=== PATIENT | male | born 1985 | race Caucasian/White ===

== ENCOUNTER 2021-12-20 14:18 | Emergency (ER) | payer OTHER ==
[~2021-12-20] VITALS: Ht 182.9 cm; Wt 121.0 kg
[2021-12-20] MEDS: IPRATRPIUM/ALBUTEROL 0.5/2.5MG 3 ML NEBU. NEB ONE (16:03)
--- NOTE | 2021-12-20 16:03 | RAD ---
XR CHEST 1V History: Reason: SOA / Spl. Instructions: / History: Comparison: None. Findings: No consolidation or pleural effusion. Normal heart size. No pneumothorax. Impression: 1. No acute cardiopulmonary process. Electronically signed by: Param Deng DO (12/20/2021 4:01 PM) [facility]
[2021-12-20 16:27] LABS: BASO # 0.1 x10^3/uL (0.0-0.2); BASO % 1 % (0-3); EOS # 0.2 x10^3/uL (0.0-0.7); EOS % 2 % (0-3); HEMOGLOBIN 17.9 g/dL (13.0-17.5); LYMPH # 3.2 x10^3/uL (1.0-4.8); LYMPH % 34 % (24-48); MEAN CORPUSCULAR HEMOGLOBIN 32 pg (25-35); MEAN CORPUSCULAR HGB CONC 35 g/dL (31-37); MEAN CORPUSCULAR VOLUME 90 fL (79-100); MONO # 0.8 x10^3/uL (0.0-1.1); MONO % 9 % (0-9); NEUT # 5.2 x10^3uL (1.8-7.7); NEUT % 55 % (31-73); PLATELET COUNT 290 x10^3/uL (140-400); RED BLOOD COUNT 5.64 x10^6/uL (4.30-5.70); RED CELL DISTRIBUTION WIDTH 12.8 % (11.5-14.5); WHITE BLOOD COUNT 9.6 x10^3/uL (4.0-11.0)
[2021-12-20 16:38] LABS: CALCIUM 9.1 mg/dL (8.5-10.1); CREATININE 1.1 mg/dL (0.7-1.3); GFR 75.3; POTASSIUM 3.5 mmol/L (3.5-5.1)
[2021-12-20 16:50] LABS: ALBUMIN 4.3 g/dL (3.4-5.0); ALBUMIN/GLOBULIN RATIO 1.3 (1.0-1.7); TOTAL BILIRUBIN 0.8 mg/dL (0.2-1.0); TOTAL PROTEIN 7.5 g/dL (6.4-8.2)
[2021-12-20 16:51] LABS: INFLUENZA A PATIENT NEGATIVE (NEGATIVE); INFLUENZA B PATIENT NEGATIVE (NEGATIVE)
[2021-12-20] MEDS: ASPIRIN CHEWABLE 81 MG TABLET. PO ONE (16:56)
[2021-12-20] MEDS: methylPREDNISolone SOD SUCC PF 125 MG/2 ML VIAL. IV ONE (16:57)
--- NOTE | 2021-12-20 17:01 | EKG ---
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
[2021-12-20 17:20] VITALS: BP 144/96
[2021-12-20] MEDS ORDERED: AZIT250T6 PO (17:31)
[2021-12-20] MEDS ORDERED: ALBU2.5V8 IH (17:31)
[2021-12-20] MEDS ORDERED: PRED50TA PO (17:31)
--- NOTE | 2021-12-20 17:31 | PHYS DOC ---
Past History Additional Past Medical Histor: elevated liver enzymes Past Surgical History: Other Additional Past Surgical Histo: knee, jaw Adult General Chief Complaint Chief Complaint: SHORTNESS OF BREATH HPI HPI The patient is a 36-year-old male with a long tobacco use history (just quit a month or 2 ago). He also has a history of hypertension. He is otherwise healthy. He presents for evaluation of mild nasal congestion, dry cough and mild shortness of breath, all with onset last evening and worsening today. Today began having hacking coughing fits. States symptoms are almost identical to many prior episodes of "acute bronchitis" which he has had in the past. No fevers, vomiting, chest pain of any kind, abdominal pain, flank pain, back pain, dysuria, hematuria, polyuria or oliguria, changes in bowel habits, pain or swelling to arms or legs. Vital signs are appropriate here and the patient is in no acute distress. Review of Systems Review of Systems A 12 point review of systems was completed and was negative except where noted in HPI above. Current Medications Current Medications Current Medications Medications (Trade) Dose Ordered Sig/Stephanie Start Time Stop Time Status Last Admin Dose Admin Albuterol/ Ipratropium (Duoneb) 3 ml 1X ONCE 12/20/21 15:30 12/20/21 15:31 DC 12/20/21 16:03 3 ML Aspirin (Aspirin Chewable) 324 mg 1X ONCE 12/20/21 15:30 12/20/21 15:31 DC 12/20/21 16:56 324 MG Methylprednisolone Sodium Succinate (SOLU-Medrol 125MG VIAL) 125 mg 1X ONCE 12/20/21 15:30 12/20/21 15:31 DC 12/20/21 16:57 125 MG Allergies Allergies Allergies Coded Allergies Type Severity Reaction Last Updated Verified hydrocodone Allergy Unknown Nausea and Vomiting 12/20/21 Yes Physical Exam Physical Exam 36-year-old male appearing nontoxic and in no acute distress. Head is normoc ephalic and atraumatic. Neck is supple and nontender. Oropharynx is moist. Lungs are clear to auscultation at all stations. There is a normal S1 and S2 without rubs or gallops and capillary refill is appropriate, less than 2 seconds globally. Abdomen is soft, nontender and nondistended without pulsatile mass. Skin is warm and dry without cyanosis, clubbing or edema. Psychiatrically, the patient demonstrates appropriate mood and affect and is alert. Evaluation of the extremities reveals BUEs and BLEs neurovascularly intact distally with strength out of 5, sensation intact light touch in all nerve distributions, radial, DP and PT pulses 2+ and equal bilaterally, capillary refill less than 2 seconds, hands and feet warm and well-perfused. No dependent peripheral edema distally. No calf tenderness or swelling bilaterally. Homans test is negative bilaterally. Current Patient Data Vital Signs Vital Signs Date Time Temp Pulse Resp B/P (MAP) Pulse Ox O2 Delivery O2 Flow Rate FiO2 12/20/21 16:04 95 Room Air 12/20/21 14:51 98.2 98 30 133/81 (98) Lab Results Laboratory Tests Test 12/20/21 15:50 12/20/21 15:52 White Blood Count 9.6 x10^3/uL (4.0-11.0) Red Blood Count 5.64 x10^6/uL (4.30-5.70) Hemoglobin 17.9 g/dL (13.0-17.5) H Hematocrit 51.0 % (39.0-53.0) Mean Corpuscular Volume 90 fL (79-100) Mean Corpuscular Hemoglobin 32 pg (25-35) Mean Corpuscular Hemoglobin Concent 35 g/dL (31-37) Red Cell Distribution Width 12.8 % (11.5-14.5) Platelet Count 290 x10^3/uL (140-400) Neutrophils (%) (Auto) 55 % (31-73) Lymphocytes (%) (Auto) 34 % (24-48) Monocytes (%) (Auto) 9 % (0-9) Eosinophils (%) (Auto) 2 % (0-3) Basophils (%) (Auto) 1 % (0-3) Neutrophils # (Auto) 5.2 x10^3uL (1.8-7.7) Lymphocytes # (Auto) 3.2 x10^3/uL (1.0-4.8) Monocytes # (Auto) 0.8 x10^3/uL (0.0-1.1) Eosinophils # (Auto) 0.2 x10^3/uL (0.0-0.7) Basophils # (Auto) 0.1 x10^3/uL (0.0-0.2) Prothrombin Time 10.9 SEC (9.4-11.4) Prothrombin Time INR 1.1 (0.9-1.1) Activated Partial Thromboplast Time 25 SEC (23-33) D-Dimer (Sena) 0.32 mg/L (0.00-0.50) Sodium Level 140 mmol/L (136-145) Potassium Level 3.5 mmol/L (3.5-5.1) Chloride Level 103 mmol/L (98-107) Carbon Dioxide Level 25 mmol/L (21-32) Anion Gap 12 (6-14) Blood Urea Nitrogen 9 mg/dL (8-26) Creatinine 1.1 mg/dL (0.7-1.3) Estimated GFR (Cockcroft-Gault) 75.3 BUN/Creatinine Ratio 8 (6-20) Glucose Level 92 mg/dL (70-99) Calcium Level 9.1 mg/dL (8.5-10.1) Total Bilirubin 0.8 mg/dL (0.2-1.0) Aspartate Amino Transferase (AST) 62 U/L (15-37) H Alanine Aminotransferase (ALT) 123 U/L (16-63) H Alkaline Phosphatase 84 U/L (46-116) Troponin I High Sensitivity 9 ng/L (4-75) DS-Qbu-K-Type Natriuretic Peptide 20 pg/mL (0-124) Total Protein 7.5 g/dL (6.4-8.2) Albumin 4.3 g/dL (3.4-5.0) Albumin/Globulin Ratio 1.3 (1.0-1.7) Influenza Type A (Rapid) Negative (NEGATIVE) Influenza Type B (Rapid) Negative (NEGATIVE) SARS-CoV-2 Antigen (Rapid) Negative (NEGATIVE) EKG EKG Sinus rhythm, rate 92, no acute ST elevation or depression, DC 160, QRS 86, QTc 440, EP interpretation. Nonischemic tracing, intervals appropriate. Radiology/Procedures Radiology/Procedures XR CHEST 1V History: Reason: SOA / Spl. Instructions: / History: Comparison: None. Findings: No consolidation or pleural effusion. Normal heart size. No pneumothorax. Impression: 1. No acute cardiopulmonary process. Electronically signed by: Param Blair DO (12/20/2021 4:01 PM) [facility] DICTATED AND SIGNED BY: PARAM BLAIR DO DATE: 12/20/21 1601 CC: NITISH ESCALERA MD; NON,STAFF ~MTH0 0 [] Heart Score C/O Chest Pain: No Risk Factors: Risk Factors: DM, Current or recent (<one month) smoker, HTN, HLP, family history of CAD, obesity. Risk Scores: Risk Factors: DM, Current or recent (<one month) smoker, HTN, HLP, family h istory of CAD, obesity. Course & Med Decision Making Course & Med Decision Making Labs and imaging wholly nonacute. Patient is feeling much, much better after breathing treatments and steroids here in the emergency department. Will treat for acute exacerbation of chronic bronchitis with azithromycin, prednisone and an inhaler. Patient is to follow-up closely with primary care and understands that if he feels worse instead of better or develops other new symptoms of concern that he should return to the emergency department immediately for reevaluation. All questions are answered. Dragon Disclaimer Dragon Disclaimer This electronic medical record was generated, in whole or in part, using a voice recognition dictation system. Departure Departure: Impression: Primary Impression: Upper respiratory infection, acute Additional Impression: Acute exacerbation of chronic bronchitis Disposition: HOME / SELF CARE / HOMELESS Condition: IMPROVED Patient Instructions: Acute Bronchitis Additional Instructions: Follow-up very closely with your primary care doctor in the office in the next 2 to 4 days for reevaluation of your symptoms and to discussion of next best steps in care. Drink plenty of fluids and get plenty of rest. Take a 50 mg prednisone pill daily for the next 5 days. Take the azithromycin antibiotic as per the instructions on the package. Use the inhaler every 4 hours (2 puffs) to help with your cough. Return to the emergency department right away for worsening symptoms of any kind or with any other new symptoms of concern Scripts Albuterol Sulfate (VENTOLIN HFA INHALER) 18 Gm Hfa.aer.ad 2 PUFF IH PRN Q4HRS PRN for COUGH, #1 EACH 1 Refill Prov: NITISH ESCALERA MD 12/20/21 Prednisone (PREDNISONE) 50 Mg Tablet 1 TAB PO DAILY for bronchitis for 5 Days, #5 TAB Prov: NITISH ESCALERA MD 12/20/21 Azithromycin (AZITHROMYCIN TABLET) 250 Mg Tablet 1 PKG PO UD for bronchitis for 5 Days, #6 TAB 0 Refills 2 the first day followed by 1 for days 2-5 Prov: NITISH ESCALERA MD 12/20/21 Problem Qualifiers NITISH ESCALERA MD Dec 20, 2021 17:31
== END 2021-12-20 18:40 | disposition home or self-care (01) ==
LOC: ER 14:18
DX: J42 Unspecified chronic bronchitis (principal); J06.9 Acute upper respiratory infection, unspecified; Z20.822 Contact with and (suspected) exposure to COVID-19; Z88.5 Allergy status to narcotic agent
CPT/HCPCS: 36415; 71045; 80053; 83880; 84484; 85025; 85379; 85610; 85730; 87428; 93005; 94640; 96374; 99285; J2930